=== PATIENT | male | born 1965 | race Caucasian/White ===

== ENCOUNTER 2017-06-21 10:26 | Outpatient (CLI) | payer MEDICAID ==
[~2017-06-21 10:26] MED LIST: HYDR-569 PO; OXYC5CAP19 PO
== END 2017-06-21 23:59 | disposition home or self-care (01) ==
LOC: RAD 10:26
PROVIDERS: ATTEND Obstetrics & Gynecology
DX: F11.20 Opioid dependence, uncomplicated (principal); I10 Essential (primary) hypertension; F17.200 Nicotine dependence, unspecified, uncomplicated
CPT/HCPCS: 93005

== ENCOUNTER 2018-03-20 09:40 | Outpatient (CLI) | payer MEDICARE, MEDICAID ==
[~2018-03-20 09:40] MED LIST changes: +HYDR-4383 PO; -HYDR-569 PO
== END 2018-03-20 23:59 | disposition home or self-care (01) ==
LOC: RAD 09:40
PROVIDERS: ATTEND Physician Assistant Medical
DX: F13.20 Sedative, hypnotic or anxiolytic dependence, uncomplicated (principal); I10 Essential (primary) hypertension; F17.200 Nicotine dependence, unspecified, uncomplicated
CPT/HCPCS: 93005

== ENCOUNTER 2019-03-25 11:21 | Outpatient (CLI) | payer MEDICARE, MEDICAID | END 2019-03-25 23:59 | disposition home or self-care (01) | LOC: CARD DIAG 11:21 | PROVIDERS: ATTEND Obstetrics & Gynecology | DX: I48.91 Unspecified atrial fibrillation (principal) | CPT/HCPCS: 93005 ==

== ENCOUNTER 2019-06-26 07:43 | Day surgery (SDC) | payer MEDICARE, MEDICAID ==
[~2019-06-26] VITALS: Ht 182.9 cm; Wt 145.6 kg
[2019-06-26] VITALS (10 sets, daily range): BP systolic 120–152; BP diastolic 56–95
[2019-06-26] MEDS ORDERED: normal saline 1,000 ML IV SCH (08:05)
[2019-06-26] MEDS ORDERED: diphenhydrAMINE 25mg capsule PO PRN (08:05)
[2019-06-26] MEDS ORDERED: iohexol 350MG/ML 100ml bottle IV ONE (08:51)
[2019-06-26] MEDS ORDERED: LIDOcaine 1% (10mg/ml)w/preservative injection 20ml MDV ONE (08:51)
[2019-06-26] MEDS ORDERED: heparin 1,000unit/ml 10ml vial 10 ML ONE (08:51)
[2019-06-26] MEDS ORDERED: fentaNYL/PF 50MCG/1 ML 2ML syringe ONE ×2 (08:51→10:02)
[2019-06-26] MEDS ORDERED: iohexol 350 MG/ML 50ML vial IV ONE (08:51)
[2019-06-26] MEDS ORDERED: midazolam 2 mg/2 ml injection ONE ×3 (08:51→10:02)
[2019-06-26] MEDS ORDERED: SERT25TA PO (08:57)
[2019-06-26] MEDS ORDERED: BUSP10TA11 PO (08:58)
[2019-06-26] MEDS ORDERED: LISI-600 PO (09:00)
[2019-06-26] MEDS ORDERED: AMLO10TA48 PO (09:00)
[2019-06-26] MEDS ORDERED: METF500T PO (09:02)
[2019-06-26] MEDS ORDERED: QUET300T2 PO (09:04)
[2019-06-26] MEDS ORDERED: ASPI-1265 PO (09:05)
[2019-06-26 09:55] LABS: BASOPHILS % (AUTO) 0.4 % (0-1); EOSINOPHILS % (AUTO) 1.3 % (0-6); HEMATOCRIT 41.5 % (42.0-52.0); HEMOGLOBIN 13.8 g/dl (14.0-17.9); LYMPHOCYTES # (AUTO) 0.7 X10'3 (1.1-4.8); LYMPHOCYTES % (AUTO) 19.8 % (21-51); MEAN CORPUSCULAR HEMOGLOBIN 29.7 PG (27.0-31.0); MEAN CORPUSCULAR HGB CONC 33.2 g/dL (33.0-36.5); MEAN CORPUSCULAR VOLUME 89.5 FL (78-98); MEAN PLATELET VOLUME 8.2 FL (7.4-10.4); MONOCYTES # (AUTO) 0.2 X10'3 (0-0.9); MONOCYTES % (AUTO) 7.2 % (2-12); NEUTROPHILS # (AUTO) 2.3 X10'3 (1.8-7.7); NEUTROPHILS % (AUTO) 71.3 % (42-75); PLATELET COUNT 92 X10'3 (140-440); RED BLOOD COUNT 4.64 X10'6 (4.70-6.10); RED CELL DISTRIBUTION WIDTH 16.5 % (11.5-14.5); WHITE BLOOD COUNT 3.3 X10'3 (4.5-11.0)
[2019-06-26] MEDS ORDERED: proCHLORperazine 10 MG/2 ml inj ONE (09:59)
[2019-06-26 10:08] LABS: ALBUMIN 3.1 G/DL (3.4-5.0); ANION GAP 3 (8-16); BLOOD UREA NITROGEN 6 MG/DL (7-18); BUN/CREATININE RATIO 9.5 (5.4-32.0); CALCIUM 8.7 MG/DL (8.5-10.1); CHLORIDE 105 MMOL/L (99-107); CREATININE 0.63 MG/DL (0.60-1.10); GLUCOSE 105 MG/DL (70-104); MAGNESIUM 1.8 MG/DL (1.5-2.4); SODIUM 140 MMOL/L (135-145); eGFR > 90 ML/MIN
[2019-06-26 10:09] LABS: POTASSIUM 4.6 MMOL/L (3.5-5.1)
[2019-06-26] MEDS ORDERED: OXAZEpam 15mg capsule PO PRN (11:00)
[2019-06-26] MEDS ORDERED: HYDROcodone/acetaminophen 10/325mg tab PO PRN (11:00)
[2019-06-26] MEDS ORDERED: ondansetron/PF 4mg/2ml inj IV PRN (11:00)
[2019-06-26] MEDS ORDERED: HYDROcodone/acetaminophen 5mg/325mg tablet PO PRN (11:00)
[2019-06-26] MEDS ORDERED: proCHLORperazine 10 MG/2 ml inj IV PRN (11:00)
== END 2019-06-26 14:15 | disposition home or self-care (01) ==
LOC: SSTAY O 07:43
PROVIDERS: ATTEND Internal Medicine Cardiovascular Disease
DX: R94.39 Abnormal result of other cardiovascular function study (principal); I25.10 Atherosclerotic heart disease of native coronary artery without angina pectoris; I10 Essential (primary) hypertension; I48.0 Paroxysmal atrial fibrillation; E78.5 Hyperlipidemia, unspecified; Z79.899 Other long term (current) drug therapy
CPT/HCPCS: 80048; 83735; 85025; 85610; 92960; 93005; 93458; 99152; 99153; C1769; C1894; J0780; J1644; J2001; J2250; J3010; J7030; Q0163; Q9967; A6258; C1760

== ENCOUNTER 2019-11-09 13:08 | Outpatient (CLI) | payer MEDICARE, MEDICAID ==
[~2019-11-09 13:08] MED LIST changes: +AMLO10TA48 PO; +ASPI-1265 PO; +BUSP10TA11 PO; -HYDR-4383 PO; +LISI-600 PO; +METF500T PO; -OXYC5CAP19 PO; +QUET300T2 PO; +SERT25TA PO
== END 2019-11-09 23:59 | disposition home or self-care (01) ==
LOC: RAD 13:08
PROVIDERS: ATTEND Obstetrics & Gynecology
DX: F11.20 Opioid dependence, uncomplicated (principal); I10 Essential (primary) hypertension
CPT/HCPCS: 93005

== ENCOUNTER 2021-05-31 12:22 | Outpatient (CLI) | payer BC, MEDICAID ==
[~2021-05-31 12:22] MED LIST changes: -LISI-600 PO; +LISI20TA28 PO
== END 2021-05-31 23:59 | disposition home or self-care (01) ==
LOC: LAB 12:22
PROVIDERS: ATTEND General Practice
DX: R94.31 Abnormal electrocardiogram [ECG] [EKG] (principal); F11.20 Opioid dependence, uncomplicated
CPT/HCPCS: 93005

== ENCOUNTER 2021-07-16 04:50 | Emergency (ER) | payer BC, MEDICAID ==
[~2021-07-16] VITALS: Ht 182.9 cm; Wt 147.7 kg
[2021-07-16] MEDS ORDERED: phenylephrine 1% (X-tra strg) 15ml nasal spray NS ONE (05:00)
[2021-07-16] MEDS ORDERED: LIDOcaine 4% (40 mg/ml) topical solution 50ml TP ONE (05:00)
[2021-07-16] MEDS ORDERED: ondansetron/PF 4mg/2ml inj IV ONE (05:15)
[2021-07-16 05:28] LABS: BASOPHILS % (AUTO) 0.2 % (0-1); EOSINOPHILS # (AUTO) 0.1 X10'3 (0-0.9); HEMATOCRIT 43.7 % (42.0-52.0); LYMPHOCYTES # (AUTO) 1.8 X10'3 (1.1-4.8); MEAN CORPUSCULAR HEMOGLOBIN 27.6 PG (27.0-31.0); MEAN CORPUSCULAR HGB CONC 32.1 g/dL (33.0-36.5); MEAN CORPUSCULAR VOLUME 85.9 FL (78-98); MEAN PLATELET VOLUME 8.6 FL (7.4-10.4); MONOCYTES # (AUTO) 0.7 X10'3 (0-0.9); MONOCYTES % (AUTO) 7.6 % (2-12); NEUTROPHILS # (AUTO) 6.5 X10'3 (1.8-7.7); NEUTROPHILS % (AUTO) 71.2 % (42-75); PLATELET COUNT 138 X10'3 (140-440); RED BLOOD COUNT 5.08 X10'6 (4.70-6.10); WHITE BLOOD COUNT 9.1 X10'3 (4.5-11.0)
[2021-07-16 05:33] LABS: APTT 29 SECONDS (22-32)
[2021-07-16 05:34] LABS: ALANINE AMINOTRANSFERASE 14 U/L (12-78); ALBUMIN 2.6 G/DL (3.4-5.0); ALBUMIN/GLOBULIN RATIO 0.5 (1.1-1.5); ALKALINE PHOSPHATASE 133 IU/L (46-116); ANION GAP 6 (8-16); ASPARTATE AMINO TRANSFERASE 48 U/L (10-37); BILIRUBIN,TOTAL 0.7 MG/DL (0.1-1.0); BLOOD UREA NITROGEN 16 MG/DL (7-18); CALCIUM 9.5 MG/DL (8.5-10.1); CHLORIDE 99 MMOL/L (99-107); CREATININE 1.07 MG/DL (0.60-1.10); SODIUM 136 MMOL/L (135-145); TOTAL CARBON DIOXIDE 30.9 MMOL/L (24-32); TOTAL PROTEIN 7.4 G/DL (6.4-8.2); eGFR 72 ML/MIN
--- NOTE | 2021-07-16 05:40 | NUR ---
PT PRESENTS TO ED WITH A NOSEBLEED SINCE AROUND 0200. PT IS ON ELIQUIS. HX OF A FIB AND COPD. AAOXS3. NO ACUTE DISTRESS NOTED. WILL MONITOR THROUGHOUT. ENT BOX AT BEDSIDE.
[2021-07-16 05:49] LABS: GLUCOSE 303 MG/DL (70-104)
[2021-07-16] MEDS ORDERED: LIDOcaine Viscous 15ml cup MM ONE (06:30)
[2021-07-16] MEDS ORDERED: tranexamic acid 100mg/ml inj. TP ONE (06:30)
--- NOTE | 2021-07-16 06:35 | NUR ---
Pt was in process of being DC'd and when pt went to stand up and move around pts nose started bleeding again. MD Ge notified and in room with pt.
[2021-07-16] MEDS ORDERED: SULF1TAB45 PO (07:18)
[2021-07-16 07:47] VITALS: BP 141/61
== END 2021-07-16 07:49 | disposition home or self-care (01) ==
LOC: ER 04:50
DX: R04.0 Epistaxis (principal); R42 Dizziness and giddiness; E11.65 Type 2 diabetes mellitus with hyperglycemia; G47.33 Obstructive sleep apnea (adult) (pediatric); I10 Essential (primary) hypertension; J44.9 Chronic obstructive pulmonary disease, unspecified; G89.29 Other chronic pain; F17.200 Nicotine dependence, unspecified, uncomplicated; Z86.19 Personal history of other infectious and parasitic diseases; Z98.890 Other specified postprocedural states; Z88.5 Allergy status to narcotic agent; Z79.82 Long term (current) use of aspirin; Z79.899 Other long term (current) drug therapy
CPT/HCPCS: 30901; 36415; 80053; 85025; 85610; 85730; 96374; 99284; J2405; 99283

== ENCOUNTER 2021-07-20 13:44 | Emergency (ER) | payer BC, MEDICAID ==
[~2021-07-20] VITALS: Ht 182.9 cm; Wt 147.7 kg
[~2021-07-20 13:44] MED LIST changes: +SULF1TAB45 PO
[2021-07-20 14:14] VITALS: BP 143/71
== END 2021-07-20 14:38 | disposition home or self-care (01) ==
LOC: ER 13:45
DX: R04.0 Epistaxis (principal); I48.91 Unspecified atrial fibrillation; I10 Essential (primary) hypertension; J44.9 Chronic obstructive pulmonary disease, unspecified; G47.30 Sleep apnea, unspecified; E11.9 Type 2 diabetes mellitus without complications; G89.29 Other chronic pain; Z48.00 Encounter for change or removal of nonsurgical wound dressing; Z86.19 Personal history of other infectious and parasitic diseases; Z98.890 Other specified postprocedural states; Z88.8 Allergy status to other drugs, medicaments and biological substances; Z79.82 Long term (current) use of aspirin; Z79.899 Other long term (current) drug therapy; Z87.01 Personal history of pneumonia (recurrent)
CPT/HCPCS: 99281

== ENCOUNTER 2023-06-13 01:47 | Emergency (ER) | payer BC, MEDICAID ==
[~2023-06-13] VITALS: Ht 182.9 cm; Wt 139.1 kg
[~2023-06-13 01:47] MED LIST changes: +AMLO-888 PO; -AMLO10TA48 PO; -SULF1TAB45 PO
[2023-06-13 01:56] VITALS: BP 157/76; PULSE 71; RESP 18; TEMP 99; O2SAT 92
[2023-06-13] MEDS ORDERED: CEPH-585 PO (03:03)
[2023-06-13] MEDS: cephalexin 500mg capsule PO ONE (03:26)
[2023-06-13] MEDS: LIDOcaine 1% 30ml preserv. free vial IJ ONE (03:27)
[2023-06-18] MEDS ORDERED: METH-603 PO (08:29)
[2023-06-18] MEDS ORDERED: FURO20TA4 PO (08:29)
[2023-06-18] MEDS ORDERED: BUDE10.3 INH (08:29)
[2023-06-18] MEDS ORDERED: LANTUS SQ (08:29)
[2023-06-18] MEDS ORDERED: ARIP20TA21 PO (08:32)
[2023-06-18] MEDS ORDERED: APIX2.5T PO (08:32)
[2023-06-19] MEDS ORDERED: SULF1TAB49 PO (11:17)
== END 2023-06-13 03:43 | disposition home or self-care (01) ==
LOC: ER 01:48
DX: L02.511 Cutaneous abscess of right hand (principal); I10 Essential (primary) hypertension; E11.9 Type 2 diabetes mellitus without complications; J45.909 Unspecified asthma, uncomplicated; G47.30 Sleep apnea, unspecified; G89.29 Other chronic pain; M54.9 Dorsalgia, unspecified; Z88.8 Allergy status to other drugs, medicaments and biological substances
CPT/HCPCS: 10060; 99283; J3490

== ENCOUNTER 2023-08-17 22:14 | Emergency (ER) | payer BC, MEDICAID ==
[~2023-08-17] VITALS: Ht 182.9 cm; Wt 147.7 kg
[~2023-08-17 22:14] MED LIST changes: -AMLO-888 PO; +APIX2.5T PO; -ASPI-1265 PO; +BUDE10.3 INH; -BUSP10TA11 PO; +FURO20TA4 PO; +LANTUS SQ; -METF500T PO; +METH-603 PO; -QUET300T2 PO; -SERT25TA PO
[2023-08-17 22:18] VITALS: BP 131/83; PULSE 89; RESP 20; TEMP 98.4; O2SAT 92
[2023-08-17 22:56] LABS: BASOPHILS % (AUTO) 0.8 % (0-1); EOSINOPHILS % (AUTO) 0.3 % (0-6); HEMATOCRIT 47.2 % (42.0-52.0); HEMOGLOBIN 15.5 g/dl (14.0-17.9); LYMPHOCYTES # (AUTO) 0.9 X10'3 (1.1-4.8); LYMPHOCYTES % (AUTO) 16.1 % (21-51); MEAN CORPUSCULAR HEMOGLOBIN 28.3 PG (27.0-31.0); MEAN CORPUSCULAR HGB CONC 32.8 g/dL (33.0-36.5); MEAN CORPUSCULAR VOLUME 86.2 FL (78-98); MEAN PLATELET VOLUME 7.9 FL (7.4-10.4); MONOCYTES # (AUTO) 0.4 X10'3 (0-0.9); MONOCYTES % (AUTO) 7.2 % (2-12); NEUTROPHILS # (AUTO) 4.1 X10'3 (1.8-7.7); NEUTROPHILS % (AUTO) 75.6 % (42-75); PLATELET COUNT 95 X10'3 (140-440); RED BLOOD COUNT 5.48 X10'6 (4.70-6.10); RED CELL DISTRIBUTION WIDTH 16.6 % (11.5-14.5); WHITE BLOOD COUNT 5.5 X10'3 (4.5-11.0)
[2023-08-17 23:05] LABS: ALBUMIN 2.6 G/DL (3.4-5.0); ANION GAP 5 (8-16); BLOOD UREA NITROGEN 9 MG/DL (7-18); BUN/CREATININE RATIO 9.3 (10.0-20.0); CALCIUM 9.4 MG/DL (8.5-10.1); CHLORIDE 96 MMOL/L (99-107); CREATININE 0.97 MG/DL (0.60-1.10); GLUCOSE 241 MG/DL (70-104); POTASSIUM 3.7 MMOL/L (3.5-5.1); PRO BRAIN NATRIURETIC PEPTIDE 130 PG/ML (0-125); SODIUM 134 MMOL/L (135-145); TOTAL CARBON DIOXIDE 32.8 MMOL/L (24-32); eCRCL 92 ML/MIN; eGFR 80 ML/MIN
== END 2023-08-18 00:11 | disposition left against medical advice (07) ==
LOC: ER 22:15
DX: R06.02 Shortness of breath (principal); Z53.21 Procedure and treatment not carried out due to patient leaving prior to being seen by health care provider
CPT/HCPCS: 80048; 83880; 84484; 85025; 93005

== ENCOUNTER 2024-05-19 08:40 | Inpatient (IN) | payer BC, MEDICAID ==
[~2024-05-19] VITALS: Ht 185.4 cm; Wt 168.0 kg
[2024-05-19] VITALS (23 sets, daily range): BP systolic 69–127; BP diastolic 45–81; PULSE 68–135; RESP 18–34; O2SAT 91–99
[~2024-05-19 08:40] MED LIST changes: +rocuronium 10mg/ml inj IV ONE
[2024-05-19] MEDS: etomidate 2mg/ml inj. IV ONE (08:50)
[2024-05-19 09:01] LABS: BASOPHILS % (AUTO) 0.3 % (0-1); EOSINOPHILS % (AUTO) 0.1 % (0-6); MONOCYTES # (AUTO) 1.1 X10'3 (0-0.9)
[2024-05-19] MEDS: midazolam 100mg in NS 100ml 100 ML IV PRN (09:02)
[2024-05-19 09:03] LABS: LYMPHOCYTES # (AUTO) 2.9 X10'3 (1.1-4.8); LYMPHOCYTES % (AUTO) 18.6 % (21-51); MEAN CORPUSCULAR HEMOGLOBIN 28.8 PG (27.0-31.0); MEAN PLATELET VOLUME 7.9 FL (7.4-10.4); MONOCYTES % (AUTO) 7.4 % (2-12); NEUTROPHILS # (AUTO) 11.4 X10'3 (1.8-7.7); NEUTROPHILS % (AUTO) 73.6 % (42-75); PLATELET COUNT 167 X10'3 (140-440); WHITE BLOOD COUNT 15.5 X10'3 (4.5-11.0)
[2024-05-19] MEDS: FENTANYL 1000MCG/NS 100 ML BAG /PF IV SCH (09:07)
[2024-05-19 09:23] LABS: ALANINE AMINOTRANSFERASE 6 U/L (12-78); ALBUMIN 2.5 G/DL (3.4-5.0); ALBUMIN/GLOBULIN RATIO 0.5 (1.1-1.5); ALKALINE PHOSPHATASE 154 IU/L (46-116); ANION GAP 12 (8-16); BILIRUBIN,TOTAL 1.7 MG/DL (0.1-1.0); BLOOD UREA NITROGEN 13 MG/DL (7-18); BUN/CREATININE RATIO 11.9 (10.0-20.0); CALCIUM 8.6 MG/DL (8.5-10.1); CHLORIDE 100 MMOL/L (99-107); CREATININE 1.09 MG/DL (0.60-1.10); SODIUM 141 MMOL/L (135-145); TOTAL CARBON DIOXIDE 29.2 MMOL/L (24-32); eCRCL 83 ML/MIN; eGFR 69 ML/MIN
[2024-05-19 09:28] LABS: HEMATOCRIT 46.9 % (42.0-52.0); RED BLOOD COUNT 5.23 X10'6 (4.70-6.10)
[2024-05-19 09:29] LABS: MEAN CORPUSCULAR VOLUME 89.8 FL (78-98); RED CELL DISTRIBUTION WIDTH 16.5 % (11.5-14.5)
[2024-05-19 09:31] LABS: PRO BRAIN NATRIURETIC PEPTIDE 1898 PG/ML (0-125)
[2024-05-19 09:53] LABS: ABG BASE EXCESS -4.2 mmol/L (-2.0-3.0); ABG HCO3 25.2 mmol/L (21.0-28.0); ABG OXYGEN SATURATION 99.7 % (94.0-98.0); ABG PCO2 (T) 64.1 mmHg (35.0-48.0); ABG PH (T) 7.212 (7.350-7.450); ABG PO2 (T) 341.6 mmHg (83.0-108.0); ALLEN'S TEST POSITIVE; FCOHb 2.3 % (0.5-1.5); FHHb 0.3 % (0.0-5.0); FMetHb 0.2 % (0.0-1.5); FO2Hb 97.2 % (94.0-98.0); MODE VENT - AC/PRVC; PATIENT TEMPERATURE 36.8; PEEP 12 cm H2O; RESPIRATORY RATE 18 b/min; TIDAL VOLUME 475 mL; TOTAL HEMOGLOBIN 15.9 G/dl (13.5-17.5)
[2024-05-19 09:58] LABS: ANISOCYTOSIS 2+; NUCLEATED RED BLOOD CELLS 6 /100WBC (0-0); PLATELET ESTIMATE NORMAL; TOTAL CELLS COUNTED 100
[2024-05-19 10:00] LABS: POLYCHROMASIA FEW
[2024-05-19 10:10] LABS: APTT 30 SECONDS (22-32); INR 1.3 INR; PROTHROMBIN TIME 12.6 SECONDS (9.0-12.0)
[2024-05-19] MEDS ORDERED: acetaminophen 325mg tablet PO PRN ×2 (10:40)
[2024-05-19] MEDS: LidoCAINE 2% Topical Jelly 11mL syringe (UROJET) TOP ONE (10:40)
[2024-05-19] MEDS: propofol 1000mg/100ml bottle 100 ML IV SCH (10:40)
[2024-05-19] MEDS ORDERED: ondansetron/PF 4mg/2ml inj IV PRN (10:40)
[2024-05-19] MEDS ORDERED: magnesium hydroxide 30ml (MOM) UD suspension PO PRN (10:40)
[2024-05-19] MEDS: FENTANYL-0.9 % NACL/PF 100 ML IV SCH (10:40)
[2024-05-19] MEDS: PERFLUTREN PROTEIN-A MICROSPHR (Optison) 0.22 MG/ML 3ML VIAL IV ONE (10:40)
[2024-05-19 10:43] LABS: MAGNESIUM 2.4 MG/DL (1.5-2.4)
[2024-05-19] MEDS: propofol 1000mg/100ml bottle 100 ML IV PRN ×2 (10:56→22:15)
[2024-05-19 11:02] LABS: ASPARTATE AMINO TRANSFERASE 47 U/L (10-37); GLUCOSE 211 MG/DL (70-104); POTASSIUM 4.8 MMOL/L (3.5-5.1)
[2024-05-19] MEDS ORDERED: ATOR40TA72 PO (12:20)
[2024-05-19] MEDS ORDERED: FLEC50TA PO (12:20)
[2024-05-19] MEDS ORDERED: DAPA5TAB6 PO (12:20)
[2024-05-19] MEDS ORDERED: POTA8CAP20 PO (12:20)
[2024-05-19] MEDS ORDERED: DILT-94 PO (12:20)
[2024-05-19] MEDS ORDERED: METF-438 PO (12:20)
[2024-05-19] MEDS ORDERED: LISI10TA27 PO (12:20)
[2024-05-19] MEDS ORDERED: SEMA0.258 SQ (12:20)
[2024-05-19] MEDS ORDERED: DEXTROSE 15 GM of carb/4 tabs (each vial/BOTTLE has 4 tablets) PO PRN ×2 (13:00)
[2024-05-19] MEDS ORDERED: dextrose 50%-water 50ml dispensing syringe IV PRN (13:00)
[2024-05-19] MEDS ORDERED: glucagon, human recombinant 1mg kit SUBCUT PRN (13:00)
[2024-05-19 13:13] LABS: ABG HCO3 26.8 mmol/L (21.0-28.0); ABG OXYGEN SATURATION 99.6 % (94.0-98.0); ABG PCO2 (T) 50.9 mmHg (35.0-48.0); ABG PH (T) 7.337 (7.350-7.450); ABG PO2 (T) 190.6 mmHg (83.0-108.0); ALLEN'S TEST POSITIVE; FHHb 0.4 % (0.0-5.0); FMetHb 0.1 % (0.0-1.5); FO2Hb 97.5 % (94.0-98.0); MODE VENT - AC/PRVC; PATIENT TEMPERATURE 36.6; PEEP 12 cm H2O; RESPIRATORY RATE 20 b/min; TIDAL VOLUME 475 mL; TOTAL HEMOGLOBIN 14.6 G/dl (13.5-17.5)
[2024-05-19] MEDS: NORepinephrine 8mg/ 250ml NS 250 ML IV SCH (13:40)
[2024-05-19] MEDS: NORepinephrine 8mg/ 250ml NS 250 ML IV ONE (13:40)
[2024-05-19] MEDS ORDERED: UNABLE TO OBTAIN (13:52)
[2024-05-19] MEDS: clindamycin 600mg/D5W 50ml 50 ML IV ONE (15:01)
[2024-05-19] MEDS: levoFLOXACIN-Levaquin 750MG/D5 150 ML IV STA (15:30)
[2024-05-19] MEDS: heparin, porcine 5000 units/ml vial SQ SCH (15:31)
[2024-05-19] MEDS: INSULIN LISPRO 100 UNIT/ML INSULN.PEN MULTI-DOSE SQ SCH ×2 (15:33→20:23)
[2024-05-19] MEDS: clindamycin 600mg/D5W 50ml 50 ML IV SCH (15:38)
[2024-05-19 17:34] LABS: ALANINE AMINOTRANSFERASE 17 U/L (12-78); ALBUMIN 2.1 G/DL (3.4-5.0); ALBUMIN/GLOBULIN RATIO 0.5 (1.1-1.5); ALKALINE PHOSPHATASE 109 IU/L (46-116); ANION GAP 5 (8-16); ASPARTATE AMINO TRANSFERASE 131 U/L (10-37); BILIRUBIN,TOTAL 1.8 MG/DL (0.1-1.0); BLOOD UREA NITROGEN 23 MG/DL (7-18); BUN/CREATININE RATIO 15.9 (10.0-20.0); CHLORIDE 101 MMOL/L (99-107); CREATININE 1.45 MG/DL (0.60-1.10); GLUCOSE 211 MG/DL (70-104); MAGNESIUM 1.7 MG/DL (1.5-2.4); PHOSPHORUS 2.7 MG/DL (2.3-4.5); POTASSIUM 4.1 MMOL/L (3.5-5.1); SODIUM 140 MMOL/L (135-145); TOTAL CARBON DIOXIDE 34.4 MMOL/L (24-32); TOTAL PROTEIN 6.5 G/DL (6.4-8.2); eCRCL 63 ML/MIN; eGFR 50 ML/MIN
[2024-05-20] VITALS (34 sets, daily range): BP systolic 91–117; BP diastolic 52–70; PULSE 60–80; RESP 25–35; O2SAT 92–97
[2024-05-20 00:44] LABS: BASOPHILS % (AUTO) 0.1 % (0-1); EOSINOPHILS % (AUTO) 0 % (0-6); LYMPHOCYTES # (AUTO) 0.2 X10'3 (1.1-4.8); MONOCYTES # (AUTO) 0.3 X10'3 (0-0.9); WHITE BLOOD COUNT 7.5 X10'3 (4.5-11.0)
[2024-05-20] MEDS: pantoprazole 40 MG vial IV ONE (00:54)
[2024-05-20 00:59] LABS: ALANINE AMINOTRANSFERASE 19 U/L (12-78); ALBUMIN/GLOBULIN RATIO 0.4 (1.1-1.5); ALKALINE PHOSPHATASE 103 IU/L (46-116); ANION GAP 4 (8-16); ASPARTATE AMINO TRANSFERASE 142 U/L (10-37); BILIRUBIN,TOTAL 1.7 MG/DL (0.1-1.0); BLOOD UREA NITROGEN 28 MG/DL (7-18); BUN/CREATININE RATIO 15.4 (10.0-20.0); CALCIUM 8.1 MG/DL (8.5-10.1); CHLORIDE 101 MMOL/L (99-107); CREATININE 1.82 MG/DL (0.60-1.10); GLUCOSE 154 MG/DL (70-104); MAGNESIUM 1.7 MG/DL (1.5-2.4); PHOSPHORUS 2.8 MG/DL (2.3-4.5); SODIUM 141 MMOL/L (135-145); TOTAL CARBON DIOXIDE 35.8 MMOL/L (24-32); TOTAL PROTEIN 6.5 G/DL (6.4-8.2); eCRCL 50 ML/MIN; eGFR 38 ML/MIN
[2024-05-20 01:16] LABS: HEMATOCRIT 41.9 % (42.0-52.0); HEMOGLOBIN 13.7 g/dl (14.0-17.9); LYMPHOCYTES % (AUTO) 3.2 % (21-51); MEAN CORPUSCULAR HEMOGLOBIN 28.5 PG (27.0-31.0); MEAN CORPUSCULAR HGB CONC 32.7 g/dL (33.0-36.5); MEAN PLATELET VOLUME 7.9 FL (7.4-10.4); MONOCYTES % (AUTO) 4.1 % (2-12); NEUTROPHILS % (AUTO) 92.6 % (42-75); PLATELET COUNT 97 X10'3 (140-440); RED BLOOD COUNT 4.82 X10'6 (4.70-6.10); RED CELL DISTRIBUTION WIDTH 17.2 % (11.5-14.5)
[2024-05-20 01:43] LABS: ABG BASE EXCESS 5.2 mmol/L (-2.0-3.0); ABG HCO3 28.8 mmol/L (21.0-28.0); ABG OXYGEN SATURATION 95.5 % (94.0-98.0); ABG PCO2 (T) 37.5 mmHg (35.0-48.0); ABG PH (T) 7.501 (7.350-7.450); ABG PO2 (T) 66.5 mmHg (83.0-108.0); ALLEN'S TEST Modified; FCOHb 1.3 % (0.5-1.5); FHHb 4.4 % (0.0-5.0); FMetHb 0.3 % (0.0-1.5); MODE vent- ac prvc; PATIENT TEMPERATURE 36.2; PEEP 12 cm H2O; RESPIRATORY RATE 25 b/min; TIDAL VOLUME 400 mL; TOTAL HEMOGLOBIN 14.3 G/dl (13.5-17.5)
[2024-05-20 05:09] LABS: ABG BASE EXCESS 7.7 mmol/L (-2.0-3.0); ABG HCO3 31.6 mmol/L (21.0-28.0); ABG OXYGEN SATURATION 93.9 % (94.0-98.0); ABG PCO2 (T) 40.4 mmHg (35.0-48.0); ABG PH (T) 7.509 (7.350-7.450); ABG PO2 (T) 61.6 mmHg (83.0-108.0); ALLEN'S TEST Modified; FCOHb 1.3 % (0.5-1.5); FMetHb 0.3 % (0.0-1.5); FO2Hb 92.4 % (94.0-98.0); MODE vent-ac rpvc; PATIENT TEMPERATURE 36.2; PEEP 12 cm H2O; RESPIRATORY RATE 25 b/min; TIDAL VOLUME 350 mL; TOTAL HEMOGLOBIN 14.6 G/dl (13.5-17.5)
[2024-05-20] MEDS ORDERED: METH10SO PO (08:12)
[2024-05-20] MEDS: levoFLOXACIN-Levaquin 750MG/D5 150 ML IV SCH (08:34)
[2024-05-20] MEDS: pantoprazole 40MG/NS 100ML BAG 100 ML IV SCH (08:35)
[2024-05-20] MEDS ORDERED: APIX5TAB3 PO (11:05)
[2024-05-20] MEDS: furosemide 10 MG/1 ML 10ml inj IV ONE ×2 (11:57)
[2024-05-20] MEDS ORDERED: acetaminophen 325mg/10.15ml oral unit dose solution OGT PRN ×2 (13:54)
[2024-05-20] MEDS ORDERED: DEXTROSE 15 GM of carb/4 tabs (each vial/BOTTLE has 4 tablets) OGT PRN ×2 (13:54→13:55)
[2024-05-20] MEDS ORDERED: magnesium hydroxide 30ml (MOM) UD suspension OGT PRN (13:55)
[2024-05-20] MEDS: mineral oil/petrolatum ophthal oint EACHEYE SCH (14:12)
[2024-05-20] MEDS: nystatin 15 GM powder TP SCH (20:44)
[2024-05-20] MEDS: dextrose 50%-water 50ml dispensing syringe IV PRN (20:45)
[2024-05-21] VITALS (35 sets, daily range): BP systolic 98–124; BP diastolic 47–76; PULSE 70–88; RESP 25; O2SAT 92–94
[2024-05-21 03:17] LABS: BASOPHILS % (AUTO) 0.2 % (0-1); EOSINOPHILS % (AUTO) 0.2 % (0-6); HEMATOCRIT 40.6 % (42.0-52.0); HEMOGLOBIN 13.1 g/dl (14.0-17.9); LYMPHOCYTES # (AUTO) 0.5 X10'3 (1.1-4.8); LYMPHOCYTES % (AUTO) 8.2 % (21-51); MEAN CORPUSCULAR HEMOGLOBIN 28.5 PG (27.0-31.0); MEAN CORPUSCULAR HGB CONC 32.2 g/dL (33.0-36.5); MEAN CORPUSCULAR VOLUME 88.5 FL (78-98); MONOCYTES # (AUTO) 0.4 X10'3 (0-0.9); MONOCYTES % (AUTO) 6.6 % (2-12); NEUTROPHILS # (AUTO) 5.2 X10'3 (1.8-7.7); NEUTROPHILS % (AUTO) 84.8 % (42-75); PLATELET COUNT 98 X10'3 (140-440); RED BLOOD COUNT 4.58 X10'6 (4.70-6.10); RED CELL DISTRIBUTION WIDTH 18.2 % (11.5-14.5); WHITE BLOOD COUNT 6.1 X10'3 (4.5-11.0)
[2024-05-21 03:20] LABS: ABG BASE EXCESS 6.7 mmol/L (-2.0-3.0); ABG HCO3 34.8 mmol/L (21.0-28.0); ABG OXYGEN SATURATION 92.4 % (94.0-98.0); ABG PCO2 (T) 64.3 mmHg (35.0-48.0); ABG PH (T) 7.348 (7.350-7.450); ABG PO2 (T) 66.4 mmHg (83.0-108.0); ALLEN'S TEST POSITIVE; FCOHb 1.2 % (0.5-1.5); FHHb 7.5 % (0.0-5.0); FO2Hb 91.3 % (94.0-98.0); MODE VENT - AC; PATIENT TEMPERATURE 36.3; PEEP 12 cm H2O; RESPIRATORY RATE 25 b/min; TIDAL VOLUME 350 mL
[2024-05-21 03:33] LABS: ALANINE AMINOTRANSFERASE 15 U/L (12-78); ALBUMIN 1.7 G/DL (3.4-5.0); ALBUMIN/GLOBULIN RATIO 0.4 (1.1-1.5); ALKALINE PHOSPHATASE 94 IU/L (46-116); ANION GAP 5 (8-16); ASPARTATE AMINO TRANSFERASE 121 U/L (10-37); BILIRUBIN,TOTAL 1.3 MG/DL (0.1-1.0); BLOOD UREA NITROGEN 45 MG/DL (7-18); BUN/CREATININE RATIO 15.2 (10.0-20.0); CALCIUM 7.8 MG/DL (8.5-10.1); CHLORIDE 101 MMOL/L (99-107); CREATININE 2.97 MG/DL (0.60-1.10); GLUCOSE 85 MG/DL (70-104); MAGNESIUM 1.9 MG/DL (1.5-2.4); PHOSPHORUS 6.8 MG/DL (2.3-4.5); POTASSIUM 3.8 MMOL/L (3.5-5.1); PREALBUMIN 7.5 MG/DL (19-36); SODIUM 141 MMOL/L (135-145); TOTAL CARBON DIOXIDE 34.8 MMOL/L (24-32); TOTAL PROTEIN 6.3 G/DL (6.4-8.2); eCRCL 31 ML/MIN; eGFR 22 ML/MIN
[2024-05-21 07:25] LABS: ABG BASE EXCESS 6.3 mmol/L (-2.0-3.0); ABG HCO3 32.9 mmol/L (21.0-28.0); ABG PCO2 (T) 53.5 mmHg (35.0-48.0); ABG PH (T) 7.403 (7.350-7.450); ABG PO2 (T) 63.4 mmHg (83.0-108.0); ALLEN'S TEST POSITIVE; FCOHb 1.1 % (0.5-1.5); FHHb 7.9 % (0.0-5.0); FMetHb 0.3 % (0.0-1.5); FO2Hb 90.7 % (94.0-98.0); MODE VENT - AC; PATIENT TEMPERATURE 36.3; RESPIRATORY RATE 25 b/min; TIDAL VOLUME 400 mL; TOTAL HEMOGLOBIN 14.3 G/dl (13.5-17.5)
[2024-05-21] MEDS ORDERED: albumin (human) 25% 100ml IV 100 ML IV PRN (08:00)
[2024-05-21] MEDS: CefTRIAXone/D5W-Rocephin 1gm 50 ML IV ONE (13:27)
[2024-05-22] VITALS (34 sets, daily range): BP systolic 91–115; BP diastolic 47–62; PULSE 68–132; RESP 25–31; O2SAT 89–94
[2024-05-22 03:37] LABS: BASOPHILS % (AUTO) 0.4 % (0-1); EOSINOPHILS % (AUTO) 0.3 % (0-6); HEMATOCRIT 38.7 % (42.0-52.0); HEMOGLOBIN 12.4 g/dl (14.0-17.9); LYMPHOCYTES # (AUTO) 0.4 X10'3 (1.1-4.8); LYMPHOCYTES % (AUTO) 9.7 % (21-51); MEAN CORPUSCULAR HEMOGLOBIN 28.2 PG (27.0-31.0); MEAN CORPUSCULAR VOLUME 88.2 FL (78-98); MEAN PLATELET VOLUME 8.4 FL (7.4-10.4); MONOCYTES # (AUTO) 0.3 X10'3 (0-0.9); MONOCYTES % (AUTO) 7.7 % (2-12); NEUTROPHILS # (AUTO) 3.5 X10'3 (1.8-7.7); NEUTROPHILS % (AUTO) 81.9 % (42-75); PLATELET COUNT 76 X10'3 (140-440); RED BLOOD COUNT 4.39 X10'6 (4.70-6.10); WHITE BLOOD COUNT 4.2 X10'3 (4.5-11.0)
[2024-05-22 03:52] LABS: ALANINE AMINOTRANSFERASE 11 U/L (12-78); ALBUMIN 1.7 G/DL (3.4-5.0); ALBUMIN/GLOBULIN RATIO 0.4 (1.1-1.5); ALKALINE PHOSPHATASE 87 IU/L (46-116); ANION GAP 7 (8-16); ASPARTATE AMINO TRANSFERASE 105 U/L (10-37); BILIRUBIN,TOTAL 0.8 MG/DL (0.1-1.0); BLOOD UREA NITROGEN 64 MG/DL (7-18); BUN/CREATININE RATIO 15.8 (10.0-20.0); CALCIUM 7.4 MG/DL (8.5-10.1); CHLORIDE 100 MMOL/L (99-107); CREATININE 4.06 MG/DL (0.60-1.10); GLUCOSE 88 MG/DL (70-104); MAGNESIUM 2.1 MG/DL (1.5-2.4); PHOSPHORUS 7.6 MG/DL (2.3-4.5); POTASSIUM 4.4 MMOL/L (3.5-5.1); SODIUM 141 MMOL/L (135-145); TOTAL CARBON DIOXIDE 34.5 MMOL/L (24-32); TOTAL PROTEIN 5.8 G/DL (6.4-8.2); eCRCL 22 ML/MIN; eGFR 15 ML/MIN
[2024-05-22 03:58] LABS: ABG BASE EXCESS 5.4 mmol/L (-2.0-3.0); ABG HCO3 32.4 mmol/L (21.0-28.0); ABG OXYGEN SATURATION 92.4 % (94.0-98.0); ABG PCO2 (T) 61.3 mmHg (35.0-48.0); ABG PH (T) 7.346 (7.350-7.450); ABG PO2 (T) 72.8 mmHg (83.0-108.0); FHHb 7.5 % (0.0-5.0); FMetHb 0.3 % (0.0-1.5); FO2Hb 91.2 % (94.0-98.0); MODE VENT - AC; PATIENT TEMPERATURE 38.1; PEEP 12 cm H2O; RESPIRATORY RATE 25 b/min; TIDAL VOLUME 400 mL; TOTAL HEMOGLOBIN 13.2 G/dl (13.5-17.5)
[2024-05-22] MEDS ORDERED: normal saline 1000ml 100 ML IV PRN (08:00)
[2024-05-22] MEDS: CefTRIAXone/D5W-Rocephin 1gm 50 ML IV SCH (08:06)
[2024-05-22] MEDS ORDERED: FLU VACC TS2024-25(6MOS UP)/PF 45 MCG/0.5 ML SYRINGE IMVAC ONE (10:00)
[2024-05-22] MEDS ORDERED: albumin (human) 25% 100ml IV 100 ML IV PRN (13:35)
[2024-05-22] MEDS: heparin 1,000 units/ml 10ml inj HE ONE ×4 (14:08→14:09)
[2024-05-22] MEDS: mannitol 12.5gm/50mL VIAL IV ONE (14:10)
[2024-05-22] MEDS: mannitol 12.5gm/50mL VIAL IV PRN (14:10)
[2024-05-22 17:38] LABS: MAGNESIUM 2.2 MG/DL (1.5-2.4); POTASSIUM 4.6 MMOL/L (3.5-5.1)
[2024-05-22 18:32] LABS: ETHANOL < 10 MG/DL (<10)
[2024-05-22 19:02] LABS: CREATININE 4.57 MG/DL (0.60-1.10); eCRCL 20 ML/MIN; eGFR 13 ML/MIN
[2024-05-23] VITALS (57 sets, daily range): BP systolic 83–149; BP diastolic 42–84; PULSE 66–128; RESP 19–30; TEMP 99–99.3; O2SAT 86–94
[2024-05-23 03:13] LABS: BASOPHILS % (AUTO) 0.3 % (0-1); EOSINOPHILS % (AUTO) 0.3 % (0-6); HEMATOCRIT 38.4 % (42.0-52.0); HEMOGLOBIN 12.2 g/dl (14.0-17.9); LYMPHOCYTES # (AUTO) 0.4 X10'3 (1.1-4.8); LYMPHOCYTES % (AUTO) 9.6 % (21-51); MEAN CORPUSCULAR HEMOGLOBIN 27.9 PG (27.0-31.0); MEAN CORPUSCULAR HGB CONC 31.6 g/dL (33.0-36.5); MEAN CORPUSCULAR VOLUME 88.2 FL (78-98); MEAN PLATELET VOLUME 8.2 FL (7.4-10.4); MONOCYTES # (AUTO) 0.4 X10'3 (0-0.9); MONOCYTES % (AUTO) 9.3 % (2-12); NEUTROPHILS # (AUTO) 3.4 X10'3 (1.8-7.7); NEUTROPHILS % (AUTO) 80.5 % (42-75); PLATELET COUNT 66 X10'3 (140-440); RED BLOOD COUNT 4.36 X10'6 (4.70-6.10); RED CELL DISTRIBUTION WIDTH 17.8 % (11.5-14.5); WHITE BLOOD COUNT 4.2 X10'3 (4.5-11.0)
[2024-05-23 03:41] LABS: ABG BASE EXCESS 5.7 mmol/L (-2.0-3.0); ABG HCO3 33.2 mmol/L (21.0-28.0); ABG OXYGEN SATURATION 93.6 % (94.0-98.0); ABG PCO2 (T) 61.2 mmHg (35.0-48.0); ALLEN'S TEST POSITIVE; FCOHb 0.3 % (0.5-1.5); FHHb 6.4 % (0.0-5.0); FMetHb 0.3 % (0.0-1.5); MODE VENT - AC; PATIENT TEMPERATURE 36.7; PEEP 12 cm H2O; RESPIRATORY RATE 25 b/min; TIDAL VOLUME 400 mL; TOTAL HEMOGLOBIN 13.1 G/dl (13.5-17.5)
[2024-05-23 04:15] LABS: ALANINE AMINOTRANSFERASE 18 U/L (12-78); ALBUMIN 1.6 G/DL (3.4-5.0); ALBUMIN/GLOBULIN RATIO 0.4 (1.1-1.5); ALKALINE PHOSPHATASE 80 IU/L (46-116); ANION GAP 6 (8-16); ASPARTATE AMINO TRANSFERASE 135 U/L (10-37); BILIRUBIN,TOTAL 0.7 MG/DL (0.1-1.0); BLOOD UREA NITROGEN 86 MG/DL (7-18); CHLORIDE 100 MMOL/L (99-107); CREATININE 4.78 MG/DL (0.60-1.10); GLUCOSE 141 MG/DL (70-104); MAGNESIUM 2.2 MG/DL (1.5-2.4); PHOSPHORUS 8.8 MG/DL (2.3-4.5); POTASSIUM 4.6 MMOL/L (3.5-5.1); SODIUM 140 MMOL/L (135-145); TOTAL CARBON DIOXIDE 33.7 MMOL/L (24-32); TOTAL PROTEIN 5.8 G/DL (6.4-8.2); eCRCL 19 ML/MIN; eGFR 13 ML/MIN
[2024-05-23] MEDS ORDERED: normal saline 1000ml 100 ML IV PRN (08:00)
[2024-05-23] MEDS ORDERED: rocuronium 10mg/ml inj IV ONE (08:00)
[2024-05-23] MEDS: levoFLOXACIN-Levaquin 750MG/D5 150 ML IV SCH (08:06)
[2024-05-23] MEDS: albumin (human) 25% 100ml IV 100 ML IV PRN (18:47)
[2024-05-23] MEDS ORDERED: NORepinephrine 32 MG in normal saline 250ml IV soln 218 ML IV SCH (18:50)
[2024-05-23] MEDS: heparin 1,000 units/ml 10ml inj HE ONE ×2 (18:52)
[2024-05-23] MEDS: mannitol 12.5gm/50mL VIAL IV PRN (18:55)
[2024-05-23] MEDS: NORepinephrine 8mg/ 250ml NS 250 ML IV ONE (19:15)
[2024-05-23] MEDS: NORepinephrine 8mg/ 250ml NS 250 ML IV SCH (19:31)
[2024-05-24] VITALS (50 sets, daily range): BP systolic 96–122; BP diastolic 31–79; PULSE 70–135; RESP 21–28; TEMP 98.6–98.9; O2SAT 26–95
[2024-05-24 03:42] LABS: BASOPHILS % (AUTO) 0.1 % (0-1); EOSINOPHILS % (AUTO) 0.2 % (0-6); LYMPHOCYTES # (AUTO) 0.6 X10'3 (1.1-4.8); LYMPHOCYTES % (AUTO) 8.3 % (21-51); MEAN CORPUSCULAR HEMOGLOBIN 28.1 PG (27.0-31.0); MEAN CORPUSCULAR HGB CONC 31.8 g/dL (33.0-36.5); MEAN CORPUSCULAR VOLUME 88.5 FL (78-98); MEAN PLATELET VOLUME 7.9 FL (7.4-10.4); MONOCYTES # (AUTO) 0.7 X10'3 (0-0.9); MONOCYTES % (AUTO) 10.7 % (2-12); NEUTROPHILS # (AUTO) 5.6 X10'3 (1.8-7.7); NEUTROPHILS % (AUTO) 80.7 % (42-75); PLATELET COUNT 82 X10'3 (140-440); RED BLOOD COUNT 4.64 X10'6 (4.70-6.10); RED CELL DISTRIBUTION WIDTH 17.8 % (11.5-14.5); WHITE BLOOD COUNT 6.9 X10'3 (4.5-11.0)
[2024-05-24 03:53] LABS: ABG BASE EXCESS 4.8 mmol/L (-2.0-3.0); ABG HCO3 32.8 mmol/L (21.0-28.0); ABG OXYGEN SATURATION 97.1 % (94.0-98.0); ABG PCO2 (T) 64.7 mmHg (35.0-48.0); ABG PH (T) 7.324 (7.350-7.450); ABG PO2 (T) 98.4 mmHg (83.0-108.0); FCOHb 1.2 % (0.5-1.5); FHHb 2.9 % (0.0-5.0); FMetHb 0.3 % (0.0-1.5); FO2Hb 95.6 % (94.0-98.0); MODE PRVC; PATIENT TEMPERATURE 37.3; PEEP 12 cm H2O; RESPIRATORY RATE 25 b/min; TIDAL VOLUME 400 mL
[2024-05-24 05:02] LABS: ALANINE AMINOTRANSFERASE 18 U/L (12-78); ALBUMIN 2.1 G/DL (3.4-5.0); ALBUMIN/GLOBULIN RATIO 0.4 (1.1-1.5); ALKALINE PHOSPHATASE 80 IU/L (46-116); ANION GAP 11 (8-16); ASPARTATE AMINO TRANSFERASE 144 U/L (10-37); BLOOD UREA NITROGEN 86 MG/DL (7-18); BUN/CREATININE RATIO 18.4 (10.0-20.0); CALCIUM 7.2 MG/DL (8.5-10.1); CHLORIDE 102 MMOL/L (99-107); CREATININE 4.68 MG/DL (0.60-1.10); GLUCOSE 135 MG/DL (70-104); MAGNESIUM 2.2 MG/DL (1.5-2.4); PHOSPHORUS 7.7 MG/DL (2.3-4.5); POTASSIUM 5.4 MMOL/L (3.5-5.1); SODIUM 142 MMOL/L (135-145); TOTAL CARBON DIOXIDE 29.5 MMOL/L (24-32); TOTAL PROTEIN 6.8 G/DL (6.4-8.2); eCRCL 19 ML/MIN; eGFR 13 ML/MIN
[2024-05-24] MEDS: pantoprazole 40 MG vial IV SCH (07:59)
[2024-05-24] MEDS: mannitol 12.5gm/50mL VIAL IV ONE (09:50)
[2024-05-24] MEDS ORDERED: EPOETIN ALFA-EPBX 20,000 UNIT/ML 1 ML MDV IV ONE (09:50)
[2024-05-24] MEDS ORDERED: albumin (human) 25% 100ml IV 100 ML IV PRN (09:50)
[2024-05-24] MEDS ORDERED: normal saline 1000ml 100 ML IV PRN (09:50)
[2024-05-24] MEDS: albumin (human) 25% 100ml IV 100 ML IV PRN (13:58)
[2024-05-24] MEDS: heparin 1,000 units/ml 10ml inj HE ONE ×2 (13:59→14:00)
[2024-05-24] MEDS: amiodarone 150mg/dext, iso-os 100 ML IV ONE (17:14)
[2024-05-24] MEDS: amiodarone/D5 360MG/200ML BAG 200 ML IV SCH (17:35)
[2024-05-24] MEDS: amiodarone 150mg/dext, iso-os 0 ML IV ONE (22:14)
[2024-05-25] VITALS (17 sets, daily range): BP systolic 103–135; BP diastolic 60–84; PULSE 105–128; RESP 16–28; O2SAT 27–93
[2024-05-25 03:28] LABS: BASOPHILS % (AUTO) 0.3 % (0-1); EOSINOPHILS % (AUTO) 0.8 % (0-6); HEMATOCRIT 39.6 % (42.0-52.0); HEMOGLOBIN 12.6 g/dl (14.0-17.9); LYMPHOCYTES # (AUTO) 0.7 X10'3 (1.1-4.8); LYMPHOCYTES % (AUTO) 12.2 % (21-51); MEAN CORPUSCULAR HEMOGLOBIN 27.8 PG (27.0-31.0); MEAN CORPUSCULAR HGB CONC 31.8 g/dL (33.0-36.5); MEAN CORPUSCULAR VOLUME 87.6 FL (78-98); MEAN PLATELET VOLUME 8.2 FL (7.4-10.4); MONOCYTES # (AUTO) 0.6 X10'3 (0-0.9); MONOCYTES % (AUTO) 11.4 % (2-12); NEUTROPHILS # (AUTO) 4.3 X10'3 (1.8-7.7); NEUTROPHILS % (AUTO) 75.3 % (42-75); PLATELET COUNT 80 X10'3 (140-440); RED BLOOD COUNT 4.52 X10'6 (4.70-6.10); WHITE BLOOD COUNT 5.6 X10'3 (4.5-11.0)
[2024-05-25 03:49] LABS: ALANINE AMINOTRANSFERASE 15 U/L (12-78); ALBUMIN 2.1 G/DL (3.4-5.0); ALBUMIN/GLOBULIN RATIO 0.4 (1.1-1.5); ALKALINE PHOSPHATASE 69 IU/L (46-116); ANION GAP 6 (8-16); ASPARTATE AMINO TRANSFERASE 101 U/L (10-37); BILIRUBIN,TOTAL 0.7 MG/DL (0.1-1.0); BLOOD UREA NITROGEN 76 MG/DL (7-18); BUN/CREATININE RATIO 19.5 (10.0-20.0); CALCIUM 7.6 MG/DL (8.5-10.1); CHLORIDE 104 MMOL/L (99-107); GLUCOSE 114 MG/DL (70-104); MAGNESIUM 2.3 MG/DL (1.5-2.4); POTASSIUM 5.3 MMOL/L (3.5-5.1); PREALBUMIN 9.4 MG/DL (19-36); SODIUM 142 MMOL/L (135-145); TOTAL CARBON DIOXIDE 31.9 MMOL/L (24-32); TOTAL PROTEIN 6.8 G/DL (6.4-8.2); eCRCL 23 ML/MIN; eGFR 16 ML/MIN
[2024-05-25 04:07] LABS: ABG BASE EXCESS 4.7 mmol/L (-2.0-3.0); ABG HCO3 33.4 mmol/L (21.0-28.0); ABG OXYGEN SATURATION 95.3 % (94.0-98.0); ABG PCO2 (T) 72.1 mmHg (35.0-48.0); ABG PH (T) 7.287 (7.350-7.450); ABG PO2 (T) 91.3 mmHg (83.0-108.0); ALLEN'S TEST POSITIVE; FHHb 4.6 % (0.0-5.0); FMetHb 0.3 % (0.0-1.5); FO2Hb 94.1 % (94.0-98.0); MODE VENT - AC/PRVC; PATIENT TEMPERATURE 37.7; PEEP 12 cm H2O; RESPIRATORY RATE 25 b/min; TIDAL VOLUME 400 mL; TOTAL HEMOGLOBIN 13.5 G/dl (13.5-17.5)
[2024-05-25] MEDS: levoFLOXACIN-Levaquin 500mg/D5 100 ML IV SCH (08:13)
[2024-05-25] MEDS ORDERED: albumin (human) 25% 100ml IV 100 ML IV PRN (10:30)
[2024-05-25] MEDS ORDERED: heparin 1,000 units/ml 10ml inj HE ONE ×2 (10:35)
[2024-05-25] MEDS ORDERED: morphine 10mg/ml inj. IV PRN (11:05)
[2024-05-25] MEDS ORDERED: sennosides/docusate sodium tablet PO SCH (20:00)
[2024-05-26 08:33] LABS: HBSAG SCREEN Negative (Negative); HEP B SURF AB Non Reactive (.)
== END 2024-05-25 16:18 | DRG 870 ==
LOC: ER 08:41 → ED HOLD 10:59 → CICU 2S 11:45
PROVIDERS: ADMIT Internal Medicine Critical Care Medicine; ATTEND Internal Medicine Critical Care Medicine
PROC: 0BH17EZ Insertion of Endotracheal Airway into Trachea, Via Natural or Artificial Opening (ICD-10-PCS; principal; 2024-05-19)
PROC: 5A1955Z Respiratory Ventilation, Greater than 96 Consecutive Hours (ICD-10-PCS; 2024-05-19)
PROC: 4A00X4Z Measurement of Central Nervous Electrical Activity, External Approach (ICD-10-PCS; 2024-05-19)
PROC: 5A12012 Performance of Cardiac Output, Single, Manual (ICD-10-PCS; 2024-05-19)
PROC: 02HV33Z Insertion of Infusion Device into Superior Vena Cava, Percutaneous Approach (ICD-10-PCS; 2024-05-19)
PROC: B548ZZA Ultrasonography of Superior Vena Cava, Guidance (ICD-10-PCS; 2024-05-19)
PROC: 4A00X4Z Measurement of Central Nervous Electrical Activity, External Approach (ICD-10-PCS; 2024-05-20)
PROC: 5A1D70Z Performance of Urinary Filtration, Intermittent, Less than 6 Hours Per Day (ICD-10-PCS; 2024-05-24)
PROC: 5A1D70Z Performance of Urinary Filtration, Intermittent, Less than 6 Hours Per Day (ICD-10-PCS; 2024-05-25)
DX: A41.9 Sepsis, unspecified organism (principal); J96.01 Acute respiratory failure with hypoxia; R65.21 Severe sepsis with septic shock; J18.9 Pneumonia, unspecified organism; N17.0 Acute kidney failure with tubular necrosis; I50.23 Acute on chronic systolic (congestive) heart failure; I21.A1 Myocardial infarction type 2; E87.20 Acidosis, unspecified; G93.1 Anoxic brain damage, not elsewhere classified; I48.92 Unspecified atrial flutter; Z68.42 Body mass index [BMI] 45.0-49.9, adult; J44.0 Chronic obstructive pulmonary disease with (acute) lower respiratory infection; I46.9 Cardiac arrest, cause unspecified; E66.01 Morbid (severe) obesity due to excess calories; D69.6 Thrombocytopenia, unspecified; E11.9 Type 2 diabetes mellitus without complications; F11.10 Opioid abuse, uncomplicated; G40.909 Epilepsy, unspecified, not intractable, without status epilepticus; G47.30 Sleep apnea, unspecified; G93.89 Other specified disorders of brain; I87.8 Other specified disorders of veins; Z20.822 Contact with and (suspected) exposure to COVID-19; I11.0 Hypertensive heart disease with heart failure; B96.1 Klebsiella pneumoniae [K. pneumoniae] as the cause of diseases classified elsewhere; G89.29 Other chronic pain; B19.20 Unspecified viral hepatitis C without hepatic coma; Z80.0 Family history of malignant neoplasm of digestive organs
CPT/HCPCS: 31500; 36415; 36556; 36600; 70450; 71045; 80053; 80320; 82565; 82803; 82947; 82948; 83036; 83605; 83735; 83880; 84100; 84132; 84134; 84145; 84484; 85007; 85018; 85025; 85610; 85730; 86706; 87040; 87070; 87077; 87081; 87186; 87340; 87502; 87503; 87811; 93005; 93306; 94002; 94003; 94760; 94799; 95720; 99291; A4314; A4333; A4615; A5200; A6213; A6222; A6253; A6446; A6449; C1751; C1758; E1594; G0257; G0378; J0171; J0282; J0696; J1644; J1815; J1940; J1956; J2150; J2470; J2704; J3010; J3490; J7030; J7040; J7120; P9047